=== PATIENT | male | born 1990 | race Caucasian/White ===

== ENCOUNTER 2019-12-01 00:50 | Emergency (ER) | payer OTHER ==
[~2019-12-01] VITALS: Ht 172.7 cm; Wt 74.8 kg
[2019-12-01 00:50] VITALS: BP 149/105
--- NOTE | 2019-12-01 00:50 | NUR ---
PT BIB [facility], PREBOOK. TAKEN TO CHAIR C
[2019-12-01 00:55] VITALS: BP 149/105
--- NOTE | 2019-12-01 00:55 | NUR ---
PT ASSESSMENT COMPLETE. PT SEATED UPRIGHT IN CHAIR TO A/W MEDICAL EVALUATION.
[2019-12-01] MEDS ORDERED: LORazepam 2 MG/ML VIAL IM ONE (01:25)
--- NOTE | 2019-12-01 01:35 | NUR ---
PT DISCHARGED BACK TO [facility] ORDERLY JUAN MANUEL PLAZAMENDOZA #[id number]. VSS. DISCHARGE EDUCATION SENT WITH [facility]
== END 2019-12-01 01:35 ==
LOC: MED 00:50
DX: R00.0 Tachycardia, unspecified (principal); F41.9 Anxiety disorder, unspecified; Z02.89 Encounter for other administrative examinations
CPT/HCPCS: 96372; 99283; J2060